=== PATIENT | female | born 1965 | race Caucasian/White ===

== ENCOUNTER 2018-10-22 00:38 | Emergency (ER) | payer OTHER ==
[~2018-10-22] VITALS: Ht 160 cm; Wt 74.1 kg
[2018-10-22 00:38] VITALS: BP 158/86
[~2018-10-22 00:38] MED LIST: ADDE30CA3 PO; ADV250INH INH; BUPR150T5; BUPR8SUB PO; GOLYLQ PO; LEVO125T4 PO; LISI-538 PO; PANT40TA3 PO; PRED5TA PO; SERT-138 PO; VENTAER
[2018-10-22] MEDS ORDERED: MAGNESIUM CITRATE 300 ML BTL PO ONE (02:00)
--- NOTE | 2018-10-22 02:28 | REP ---
Clinical: Constipation. Bloating. Pain. Technique: Upright view of the chest with supine and upright views of the abdomen and pelvis. Findings: Upright view of the chest demonstrates no acute cardiopulmonary process or free air below diaphragm to suspect pneumoperitoneum. Supine and upright views of the abdomen and pelvis demonstrates fecal stasis and suspected constipation. No bowel obstruction. No organomegaly. Phleboliths noted in the pelvis. Postsurgical changes involving the lower lumbosacral spine. Impression: Fecal stasis and presumed constipation. Electronically Signed by Shekhar Veras MD 10/22/2018 02:19 A
== END 2018-10-22 02:18 | disposition home or self-care (01) ==
LOC: M ED 00:38
DX: K59.00 Constipation, unspecified (principal); Z72.0 Tobacco use; Z79.899 Other long term (current) drug therapy; Z88.0 Allergy status to penicillin; Z88.2 Allergy status to sulfonamides

== ENCOUNTER 2022-08-17 17:02 | Inpatient (IN) | payer OTHER ==
[~2022-08-17] VITALS: Ht 160 cm; Wt 59.2 kg
[~2022-08-17 17:02] MED LIST changes: +BUPR-71; -BUPR150T5; -LISI-538 PO; +LISI20TA33 PO; +PANT40TA29 PO; -PANT40TA3 PO
[2022-08-17] MEDS ORDERED: NS 1,710 ML in IV 1 EA IV ONE (17:25)
[2022-08-17] MEDS ORDERED: cefTRIAXone SOD 2 GM in D5W MINI-BAG PLUS 50 ML IV ONE (17:25)
[2022-08-17] MEDS ORDERED: ACETAMINOPHEN 500 MG TAB PO ONE (17:25)
[2022-08-17] MEDS ORDERED: MORPHINE 4 MG/ML 1ML VIAL IV PRN (17:25)
[2022-08-17] MEDS ORDERED: ONDANSETRON 4MG 2ML VIAL IV ONE (17:25)
[2022-08-17 17:41] LABS: VENOUS BASE EXCESS -1.2 (-2.0-2.0); VENOUS HCO3 26.2 MEQ/L (23.0-27.0); VENOUS O2 SATURATION 57.2 % (60.0-80.0); VENOUS PARTIAL PRESSURE CO2 55.1 mmHg (38.0-50.0); VENOUS PARTIAL PRESSURE O2 31.1 mmHg (30.0-50.0); VENOUS PH 7.295 UNITS (7.330-7.430); VENOUS STANDARD HCO3 22.5 MEQ/L; VENOUS TOTAL CO2 27.9 MEQ/L (24.0-28.0)
[2022-08-17 17:50] LABS: BASO % 0.3 % (0.0-1.0); EOS # 0.2 10^3/uL (0.0-0.5); HEMATOCRIT 38.4 % (36.0-47.0); HEMOGLOBIN 12.9 g/dl (12.0-15.5); LYMPH # 0.2 10^3/uL (1.5-5.0); LYMPH % 1.7 % (24.0-44.0); MEAN CORPUSCULAR HEMOGLOBIN 31.5 pg (27.0-33.0); MEAN CORPUSCULAR HGB CONC 33.6 g/dl (32.0-36.5); MEAN CORPUSCULAR VOLUME 93.7 fl (80.0-96.0); MONO # 0.4 10^3/uL (0.0-0.8); MONO % 4.5 % (2.0-8.0); NEUTROPHILS # 7.9 10^3/uL (1.5-8.5); NEUTROPHILS % 91.2 % (36.0-66.0); PLATELET COUNT, AUTOMATED 176 10^3/uL (150-450); WHITE BLOOD COUNT 8.7 10^3/uL (4.0-10.0)
[2022-08-17] MEDS ORDERED: ISOVUE-370 76% 100ML VIAL As Ordered ONE (18:04)
[2022-08-17 18:11] LABS: CK-MB VALUE MASS < 1.0 NG/ML (<3.6)
[2022-08-17 18:13] LABS: ALBUMIN 2.8 G/DL (3.2-5.2); ALKALINE PHOSPHATASE 261 U/L (46-116); ALT/SGPT 209 U/L (7.0-40); AST/SGOT 94 U/L (<34); BILIRUBIN,DIRECT 3.8 MG/DL (<0.4); BILIRUBIN,TOTAL 4.6 MG/DL (0.3-1.2); BLOOD UREA NITROGEN 16 MG/DL (9-23); CALCIUM LEVEL 9.1 MG/DL (8.5-10.1); CARBON DIOXIDE LEVEL 26 MMOL/L (20-31); CHLORIDE LEVEL 102 MMOL/L (98-107); CREATININE FOR GFR 1.16 MG/DL (0.55-1.30); GLOMERULAR FILTRATION RATE 50.9 (>51); GLUCOSE, FASTING 112 MG/DL (60-100); SODIUM LEVEL 136 MMOL/L (136-145); TOTAL PROTEIN 5.6 G/DL (5.7-8.2)
[2022-08-17 18:14] LABS: CPK CREATINE PHOSPHOKINASE 335 U/L (34-145); MB/CK RELATIVE INDEX 0.29 (< OR =4)
[2022-08-17 18:22] LABS: RSV AMPLIFICATION NEGATIVE (NEGATIVE)
[2022-08-17] MEDS ORDERED: NS 1,000 ML IV ONE (18:40)
[2022-08-17 18:41] LABS: ETHYL ALCOHOL (ETHANOL) 0.004 % (0.000-0.010); LIPASE 28 U/L (12-53)
[2022-08-17 19:02] LABS: ACETAMINOPHEN LEVEL 3.4 UG/ML (10.0-20.0)
[2022-08-17] MEDS ORDERED: NOREPINEPHRINE 4MG IN D5 250ML 4 MG in IV 1 EA IV SCH ×4 (20:10→23:30)
[2022-08-17] MEDS: DOCUSATE SODIUM 100MG CAPSULE PO SCH (21:00)
[2022-08-17 21:05] LABS: CK-MB VALUE MASS < 1.0 NG/ML (<3.6)
[2022-08-17 21:06] LABS: CPK CREATINE PHOSPHOKINASE 248 U/L (34-145)
[2022-08-17] MEDS ORDERED: NALOXONE INJ 0.4MG/1ML VIAL IV STA ×2 (21:11→21:41)
[2022-08-17 21:21] LABS: HEPATITIS B SURFACE ANTIGEN NEGATIVE (NEGATIVE)
[2022-08-17 21:41] LABS: HEPATITIS B CORE ANTIBODY IGM NEGATIVE (NEGATIVE)
[2022-08-17 22:16] LABS: BARBITURATES URINE NEGATIVE (NEGATIVE)
[2022-08-17 22:17] LABS: AMPHETAMINES LEVEL URINE NEGATIVE (NEGATIVE); BENZODIAZEPINES URINE NEGATIVE (NEGATIVE); METHADONE URINE NEGATIVE (NEGATIVE); PHENCYCLIDINE URINE NEGATIVE (NEGATIVE)
[2022-08-17 22:40] LABS: CANNABINOIDS URINE POSITIVE (NEGATIVE); COCAINE METABOLITE URINE POSITIVE (NEGATIVE); OPIATES URINE POSITIVE (NEGATIVE)
[2022-08-17] MEDS ORDERED: LR 1,000 ML IV ONE (23:05)
[2022-08-17] MEDS ORDERED: MACR100C43 PO (23:12)
[2022-08-17] MEDS ORDERED: PYRI0.4T PO (23:12)
[2022-08-17] MEDS ORDERED: ADDE30TA PO (23:12)
[2022-08-17] MEDS ORDERED: SYNT150T PO (23:12)
[2022-08-17] MEDS ORDERED: ALBU8.5H INH (23:12)
[2022-08-17] MEDS ORDERED: HOME MED LIST COMPLETE! XX SCH (23:15)
[2022-08-18] VITALS (17 sets, daily range): BP systolic 100–131; BP diastolic 53–85; PULSE 95
[2022-08-18] MEDS: PIPERACILLIN/TAZOBACTAM SOD 4.5 GM in D5W MINI-BAG PLUS 50 ML IV SCH ×4 (02:45→18:20)
[2022-08-18] MEDS: LR 1,000 ML IV SCH ×2 (03:57→14:42)
[2022-08-18 04:53] LABS: MEAN CORPUSCULAR HEMOGLOBIN 30.7 pg (27.0-33.0); MEAN CORPUSCULAR HGB CONC 32.7 g/dl (32.0-36.5); MEAN CORPUSCULAR VOLUME 93.8 fl (80.0-96.0); PLATELET COUNT, AUTOMATED 160 10^3/uL (150-450); RED BLOOD COUNT 3.52 10^6/uL (4.00-5.40); WHITE BLOOD COUNT 6.1 10^3/uL (4.0-10.0)
[2022-08-18 04:55] LABS: HEMOGLOBIN 10.8 g/dl (12.0-15.5)
[2022-08-18 05:05] LABS: ALBUMIN 2.2 G/DL (3.2-5.2); BILIRUBIN,TOTAL 3.6 MG/DL (0.3-1.2); CALCIUM LEVEL 8.4 MG/DL (8.5-10.1); CREATININE FOR GFR 1.07 MG/DL (0.55-1.30); GLOMERULAR FILTRATION RATE 55.9 (>51); POTASSIUM SERUM 4.5 MMOL/L (3.5-5.1); TOTAL PROTEIN 4.6 G/DL (5.7-8.2)
[2022-08-18] MEDS ORDERED: HEPARIN SOD (PORCINE) 5000UNITS/ML 1ML VIAL/SYRINGE SC SCH (06:00)
[2022-08-18] MEDS: LEVOTHYROXINE 150MCG TABLET (0.15MG) PO SCH (06:41)
[2022-08-18] MEDS ORDERED: FLUBLOK(EGG FREE)(QUAD)INFLUENZA VACC 0.5ML SYRINGE 18YRS & OLDER IM.IMMUN ONE (09:00)
[2022-08-18] MEDS: DOCUSATE SODIUM 100MG CAPSULE PO SCH ×2 (09:51→21:02)
[2022-08-18] MEDS: PANTOPRAZOLE 40MG VIAL IV SCH (09:51)
[2022-08-18] MEDS ORDERED: MORPHINE 2 MG/ML 1ML VIAL IV ONE (12:35)
[2022-08-18] MEDS: ENOXAPARIN 40MG/0.4ML SYRINGE (J1650 PER 10MG) SC SCH (13:07)
[2022-08-18 13:12] LABS: ABG BASE EXCESS 0.1 (-2.0-2.0); ABG HCO3 24.5 MEQ/L (22.0-26.0); ABG O2 SATURATION 93.4 % (95.0-99.0); ABG PARTIAL PRESSURE CO2 38.7 mmHg (35.0-45.0); ABG PARTIAL PRESSURE O2 65.7 mmHg (75.0-100.0); ABG STANDARD HCO3 24.5 MEQ/L (22.0-26.0); ABG TOTAL CO2 25.7 MEQ/L (22.0-29.0); ABG pH (ARTERIAL) 7.419 UNITS (7.350-7.450)
[2022-08-18] MEDS: KETOROLAC 30 MG/ML 1ML VIAL IV SCH ×2 (14:42→18:47)
[2022-08-18] MEDS: ACETAMINOPHEN TAB 650MG DOSE (2X325MG) PO PRN (15:28)
[2022-08-18] MEDS ORDERED: CYCLOBENZAPRINE 5MG TABLET PO ONE (18:15)
[2022-08-18] MEDS: LIDOCAINE 5% (LIDODERM) PATCH TD SCH (18:21)
[2022-08-18] MEDS ORDERED: ACETAMINOPHEN 1000MG 100ML IV BAG IV ONE (20:25)
[2022-08-19] MEDS: PIPERACILLIN/TAZOBACTAM SOD 4.5 GM in D5W MINI-BAG PLUS 50 ML IV SCH ×3 (00:04→12:00)
[2022-08-19] MEDS: KETOROLAC 30 MG/ML 1ML VIAL IV SCH ×3 (00:04→12:44)
[2022-08-19] MEDS: ACETAMINOPHEN TAB 650MG DOSE (2X325MG) PO PRN (02:27)
[2022-08-19 05:00] VITALS: BP 115/73
[2022-08-19] MEDS: LEVOTHYROXINE 150MCG TABLET (0.15MG) PO SCH (05:53)
[2022-08-19 06:10] LABS: HEMATOCRIT 30.4 % (36.0-47.0); HEMOGLOBIN 9.9 g/dl (12.0-15.5); MEAN CORPUSCULAR HEMOGLOBIN 29.6 pg (27.0-33.0); MEAN CORPUSCULAR HGB CONC 32.6 g/dl (32.0-36.5); PLATELET COUNT, AUTOMATED 192 10^3/uL (150-450); RED BLOOD COUNT 3.34 10^6/uL (4.00-5.40); WHITE BLOOD COUNT 4.1 10^3/uL (4.0-10.0)
[2022-08-19 06:59] LABS: ALKALINE PHOSPHATASE 305 U/L (46-116); ALT/SGPT 119 U/L (7.0-40); AST/SGOT 67 U/L (<34); BLOOD UREA NITROGEN 9 MG/DL (9-23); CARBON DIOXIDE LEVEL 26 MMOL/L (20-31); CHLORIDE LEVEL 110 MMOL/L (98-107); CREATININE FOR GFR 0.92 MG/DL (0.55-1.30); GLOMERULAR FILTRATION RATE > 60.0 (>51); GLUCOSE, FASTING 81 MG/DL (60-100); POTASSIUM SERUM 3.9 MMOL/L (3.5-5.1); SODIUM LEVEL 144 MMOL/L (136-145); TOTAL PROTEIN 4.5 G/DL (5.7-8.2)
[2022-08-19] MEDS ORDERED: HYDR-4966 PO (08:18)
[2022-08-19] MEDS: LIDOCAINE 5% (LIDODERM) PATCH TD SCH (08:53)
[2022-08-19] MEDS: DOCUSATE SODIUM 100MG CAPSULE PO SCH (08:53)
[2022-08-19] MEDS: PANTOPRAZOLE 40MG VIAL IV SCH (08:53)
[2022-08-19] MEDS: ENOXAPARIN 40MG/0.4ML SYRINGE (J1650 PER 10MG) SC SCH (08:54)
[2022-08-19] MEDS ORDERED: FLUBLOK(EGG FREE)(QUAD)INFLUENZA VACC 0.5ML SYRINGE 18YRS & OLDER IM.IMMUN ONE (09:00)
[2022-08-19] MEDS ORDERED: MELO7.5T35 PO (12:04)
[2022-08-19] MEDS ORDERED: CEFD300C41 PO (12:21)
[2022-08-19] MEDS ORDERED: HYDR-3713 PO (13:11)
== END 2022-08-19 13:17 | disposition home or self-care (01) | DRG 871 ==
LOC: EDBD 17:02 → M ED 17:02 → M ED INP 23:03 → ENRESERV 08-18 00:19 → M ICU 08-18 01:44 → M MSPAV 08-18 17:28
PROVIDERS: ADMIT Internal Medicine; ATTEND Internal Medicine
DX: A41.9 Sepsis, unspecified organism (principal); G93.41 Metabolic encephalopathy; R65.21 Severe sepsis with septic shock; J18.9 Pneumonia, unspecified organism; G92.9 Unspecified toxic encephalopathy; N17.9 Acute kidney failure, unspecified; N39.0 Urinary tract infection, site not specified; K21.9 Gastro-esophageal reflux disease without esophagitis; E03.9 Hypothyroidism, unspecified; I10 Essential (primary) hypertension; J43.9 Emphysema, unspecified; J45.909 Unspecified asthma, uncomplicated; M94.0 Chondrocostal junction syndrome [Tietze]; F14.10 Cocaine abuse, uncomplicated; F15.10 Other stimulant abuse, uncomplicated; F10.10 Alcohol abuse, uncomplicated; Z88.0 Allergy status to penicillin; Z88.2 Allergy status to sulfonamides; Z79.899 Other long term (current) drug therapy; F11.10 Opioid abuse, uncomplicated; K22.70 Barrett's esophagus without dysplasia; E78.5 Hyperlipidemia, unspecified; F17.210 Nicotine dependence, cigarettes, uncomplicated

== ENCOUNTER → 2023-10-13 | Outpatient (CLI) | payer OTHER ==
[~2023-10-13] MED LIST changes: +ADDE30TA PO; +ALBU8.5H INH; +CEFD1CAP9 PO; +HYDR-3713 PO; +HYDR-4966 PO; +MACR100C43 PO; +MELO7.5T35 PO; +PYRI0.4T PO; +SYNT150T PO
== END ==
LOC: M PLARAD 08:00
PROVIDERS: ATTEND Pain Medicine Pain Medicine
DX: M54.16 Radiculopathy, lumbar region (principal); Z98.1 Arthrodesis status; M51.24 Other intervertebral disc displacement, thoracic region; M47.894 Other spondylosis, thoracic region

== ENCOUNTER → 2024-05-04 | Outpatient (CLI) | payer OTHER ==
[~2024-05-04] MED LIST changes: -ADV250INH INH; +ADVA1AER9 INH
== END ==
LOC: M RAD 14:03
PROVIDERS: ATTEND Student in an Organized Health Care Education/Training Program
DX: R06.02 Shortness of breath (principal)

== ENCOUNTER → 2025-04-09 | Outpatient (REF) | payer MEDICARE, OTHER | LOC: M SFHCDERM 13:49 → EEVIPCON 13:49 | PROVIDERS: ATTEND Nurse Practitioner Family | DX: L28.1 Prurigo nodularis (principal) ==